=== PATIENT | female | born 1930 | race Caucasian/White ===

== ENCOUNTER → 2018-11-25 | Outpatient (CLI) | payer OTHER ==
[~2018-11-25] MED LIST: ACETAMINOPHEN325 M1; ALBUTEROL2.5 MG/3 M IH; APAP650 PO; ASPIR 8181 MG PO; ASPIRIN EC325 M1 PO; ASPIRIN EC81 M1; AZO95 MG; BLACK COHOSH40 MG PO; BREWER'S YEAST500 MG PO; CLARITIN10 M3 PO; DYAZIDE; FISH OIL 1,0001 EAC7 PO; FOLBIC RF TABL1 EACH PO; HYDROCHLOROTH12.5 M2 PO; HYDROCHLOROTHIA25 M1 PO; HYDROCHLOROTHIA25 M2 PO; IBUPROFEN 200200 M1 PO; K-DUR 20 MEQ T20 MEQ PO; KLOR-CON 1010 MEQ PO; LASIX; LASIX 20 MG TAB20 MG PO; LOPRESSOR25; LOPRESSOR25 PO; MAXZIDE-25 MG1 EACH; MOBIC7.5 M1 PO; MULTIVITAMINS PO; MYSOLINE PO; NEXIUM20 MG PO; PEPCID AC20 M1 PO; PREDNISONE 20 M20 M1 PO; PREDNISONE 5 MG5 MG; PRIMIDONE50 MG; PROTONIX40 M2; SLOW RELEASE IRON PO; TOPROL XL50 MG PO; TRAMADOL 50 MG50 MG PO; TYGACIL IV; UNICOMPLEX M TA1 TA1 PO; VITAMIN D31000 UNI2; XALATAN2.5 ML OPHTHALMIC; ZANTAC 150MG T150 MG PO; ZPAK PO; [UNRECOGNIZED DRUG - REMARK]; cranberry PO
== END ==
LOC: M.RAD 13:56
DX: M47.816 Spondylosis without myelopathy or radiculopathy, lumbar region (principal); M81.0 Age-related osteoporosis without current pathological fracture; M17.12 Unilateral primary osteoarthritis, left knee; M77.32 Calcaneal spur, left foot; M25.862 Other specified joint disorders, left knee; M76.892 Other specified enthesopathies of left lower limb, excluding foot; M43.16 Spondylolisthesis, lumbar region; M25.762 Osteophyte, left knee; G89.29 Other chronic pain

== ENCOUNTER → 2018-12-06 | Outpatient (CLI) | payer OTHER | LOC: M.ULTRA 12:30 | DX: M54.42 Lumbago with sciatica, left side (principal); G89.29 Other chronic pain; M79.605 Pain in left leg ==

== ENCOUNTER → 2019-01-03 | Outpatient (CLI) | payer OTHER ==
[~2019-01-03] MED LIST changes: +GABAPENTIN 100100 MG PO; +VOLTAREN GEL 1100 G1 TOP
--- NOTE | ~2019-01-03 | PAINCON ---
[address] [address] PAIN MANAGEMENT CONSULTATION Name: HIRA MIDDLETON Room: [facility] CardenasCarol#: [id number] Admission: 01/03/19 Attend Phys: Binh Leon MD Discharge: Date of : [birth year] Report #: [id number] THIS REPORT FOR: //name// CC: Priyank Leon DATE OF SERVICE: 01/03/2019 CHIEF COMPLAINT: Low back pain. HISTORY: The patient is an 88-year-old female who has been seen in the pain clinic in the past by Dr. Caden Stafford. This is my first visit with the patient. She has a history of a symptomatic lumbar radiculopathy. She has undergone epidural steroid injections in the past and found them beneficial. She is experiencing pain in her low back as well as in her neck and pain down in her legs. She has had flareups since 1990. Pain at this juncture is in her waist and radiates down into her ankles. She is walking with a cane. Notes that she has generalized pain "everywhere." Sometimes the pain is sharp. Frequently she is experiencing numbness and tingling, which radiates down into her ankles. She has noted some swelling in her ankles as well. She sometimes feels dizzy. Has used tramadol to help curtail the pain. Has used gabapentin. Overall with gabapentin and tramadol, the pain is about 50% better. Today, she rates her pain as an 8/10. Walking is problematic. Use of medications, heat and rest are beneficial. She describes it as a constant pain with aching and throbbing sensations. Has pain in her upper neck area with some pain that radiates down to the left side of her arm. She is not being seen by a policy loan calculator. ALLERGIES: SULFA, PENICILLIN. CURRENT MEDICATIONS: Acetaminophen 650 mg q. 8 hours p.r.n., albuterol inhalation p.r.n., aspirin 81 mg, gabapentin 100 mg at bedtime, Xalatan 0.005% ophthalmic drops one drop at bedtime, Claritin 10 mg, metoprolol 25 mg, Zantac 150 mg b.i.d., tramadol 100 mg b.i.d. PAST MEDICAL HISTORY: 1. Bradycardia. 2. Dyspnea. 3. Gastroesophageal reflux. 4. Hypertension. 5. Paroxysmal supraventricular tachycardia 01/05/2018. 6. Stroke. PAST SURGICAL HISTORY: Cardiac pacemaker placement, cholecystectomy, right total knee replacement, gallbladder replacement was 2004, pacemaker 03/2014. [place] [address] PAIN MANAGEMENT CONSULTATION Name: HIRA MIDDLETON Room: [facility]#: [id number] Admission: 01/03/19 Attend Phys: Binh Leon MD Discharge: Date of : [birth year] Report #: [id number] SOCIAL HISTORY: She is retired, has not worked since 1990. REVIEW OF SYSTEMS: Fatigue, weakness, wears glasses, blurred vision, chronic sinus rhinitis, shortness of breath, swelling of the ankles, chronic cough, constipation, abdominal pain, joint pain, joint stiffness, weakness of muscles, muscle pain and cramps, back pain, difficulty walking, lightheadedness, tremors, and nervousness. LABORATORY DATA: No new laboratory values were available at the time of our interview. MRI of the lumbar spine 03/15/2012, demineralization. Limited visibility at L3 vertebral body. L1 high-grade compression fracture with retropulsion is unchanged from 2012. The vertebral body appears to maintain normal height. Grade 1 anterolisthesis is represented at L4/L5 which is unchanged. No obvious bone destruction. The intervertebral disk spaces are preserved. Facet arthropathy is present, particularly in the lower lumbar spine. PAIN CLINIC ASSESSMENT/PQRS: 1. The patient has osteoarthritis in her knee. She has had total knee replacements on the right. The patient is not being treated for rheumatoid arthritis. 2. Height 5 feet 2 inches, weight 136 pounds, BMI was 24 and weight 136 pounds. 3. Vital Signs: Blood pressure 137/86, heart rate 67, respiratory rate 16, room air saturation 96%, temperature 97.5. 4. Pain score 8/10. The patient has not fallen in the last 3 months. 5. Blood thinner. The patient is not on a blood thinning medication. 6. Hypertension. The patient is not being treated for hypertension. She is receiving metoprolol had a history of supraventricular tachycardia. 7. Opioid greater than 6 weeks. The patient is using tramadol. 8. Risk assessment tool, low for opioid use. 9. Functional assessment tool. 10. Recreational drug use. The patient denies use of recreational drugs. 11. Tobacco: The patient is not smoking. 12. Alcohol: The patient denies use of alcoholic beverages. PHYSICAL EXAMINATION: GENERAL: The patient is a well-developed white female, appears her stated age. She is alert and oriented x 3. Her affect is appropriate. Speech is fluent. HEENT: Normocephalic, atraumatic. Extraocular eye muscles. EXTREMITIES: Upper extremity muscle strength, the patient has pain and discomfort radiating down in the lower portion of her neck and down into her left arm. The patient without significant scoliosis, kyphosis, or lordosis. Has pain and discomfort in her right knee. Soreness in her neck improves sometimes with use of a heating pad. The patient has some pain that radiates down into the lower portion of her back [place] [address] PAIN MANAGEMENT CONSULTATION Name: HIRA MIDDLETON [id number] Admission: 01/03/19 Attend Phys: Binh Leon MD Discharge: Date of : [birth year] Report #: [id number] IMPRESSION: 1. Low back pain. 2. Bradycardia. 3. Dyspnea. 4. Gastroesophageal reflux. 5. Hypertension. 6. Paroxysmal supraventricular tachycardia 01/05/2018. 7. Stroke. RECOMMENDATIONS: We interviewed the patient. We discussed the risks and benefits of an epidural steroid injection. The patient continues to have pain, which she rates as an 8/10. Notes pain with walking and activities of daily living. We will again offer her the possibility of a lumbar epidural steroid injection. She is on an antibiotic that she is taking because of a kidney infection. We explained the need to postpone an injection until the patient has had her kidney problem resolved. The use of steroid at this juncture may compromise her ability to eradicate the kidney infection. She will return to the pain clinic at which time she will then consider an epidural steroid injection. We would like to thank you for letting us participate in her care. We hope she continues to improve. By: [id number]. Jareth Leon MD /jarret
== END ==
LOC: M.PC 12:30
DX: G89.29 Other chronic pain (principal); M54.5 Low back pain; R00.1 Bradycardia, unspecified; R06.00 Dyspnea, unspecified; K21.9 Gastro-esophageal reflux disease without esophagitis; I10 Essential (primary) hypertension; Z88.2 Allergy status to sulfonamides; Z88.0 Allergy status to penicillin; Z79.82 Long term (current) use of aspirin; Z79.899 Other long term (current) drug therapy; Z86.73 Personal history of transient ischemic attack (TIA), and cerebral infarction without residual deficits; Z95.0 Presence of cardiac pacemaker; Z96.651 Presence of right artificial knee joint; Z90.49 Acquired absence of other specified parts of digestive tract; Z79.891 Long term (current) use of opiate analgesic

== ENCOUNTER 2019-06-20 11:18 | Inpatient (IN) | payer OTHER ==
[~2019-06-20] VITALS: Ht 157.5 cm; Wt 60.0 kg
[2019-06-20 11:33] VITALS: BP 167/77
[2019-06-20] MEDS ORDERED: TURMERIC500 M2 PO (11:37)
[2019-06-20] MEDS ORDERED: PROBIOTIC1 EAC1 PO (11:38)
[2019-06-20] MEDS ORDERED: SYSTANE 0.3-0.1 EACH OTIC (11:38)
[2019-06-20 12:35] LABS: URINE BILIRUBIN NEGATIVE (Negative); URINE BLOOD NEGATIVE (Negative); URINE CLARITY CLEAR; URINE COLOR YELLOW; URINE GLUCOSE-RANDOM NEGATIVE (Negative); URINE KETONES NEGATIVE (Negative); URINE LEUKOCYTES-REFLEX 1+ (Negative); URINE NITRITE-REFLEX POSITIVE (Negative); URINE PROTEIN NEGATIVE (Negative); URINE SPECIFIC GRAVITY 1.025 (1.005-1.030); URINE UROBILINOGEN 0.2 E.U./dl (0.2-1.0)
[2019-06-20 12:47] LABS: ABSOLUTE LYMPHOCYTES 0.8 thou/uL (0.8-5.3); ABSOLUTE MONOCYTES 0.3 thou/uL (0.0-1.2); ABSOLUTE NEUTROPHILS 2.1 thou/uL (1.6-8.1); BASOPHILS 0.4 %; HEMATOCRIT 36.7 % (37.0-47.0); HEMOGLOBIN 12.4 gm/dL (12.0-15.0); LYMPHOCYTES 23.7 %; MCH 30.9 pg (26.0-34.0); MCHC 33.7 g/dL (28.0-37.0); MCV 91.6 fL (80.0-100.0); MONOCYTES 10.3 %; MPV 10.7 fl. (7.2-11.1); NUCLEATED RBCS 0 /100WBC; PLATELET COUNT* 105 thou/uL (150-400); POLYS 64.6 %; RBC 4.01 mil/uL (4.20-5.00); RDW-CV 13.5 % (10.5-14.5); WBC 3.3 thou/uL (4.0-11.0)
[2019-06-20 12:54] LABS: CALCIUM 8.7 mg/dL (8.5-10.1); CREATININE 1.2 mg/dL (0.6-1.3); POTASSIUM 3.7 mmol/L (3.5-5.1)
[2019-06-20 12:59] LABS: ALBUMIN 3.2 g/dL (3.4-5.0); TOTAL BILIRUBIN 0.4 mg/dL (<0.1-1.0); TOTAL PROTEIN 6.1 g/dL (6.4-8.2)
[2019-06-20 12:59] LABS: BACTERIA-REFLEX >30 Many /HPF (None Seen); CASTS None Seen /LPF (None Seen); CRYSTALS None Seen /LPF (None Seen); MUCUS 0-3 Light strn/LPF (None Seen); SQUAMOUS 4-10 Moderate /LPF (0-3); URINE RBC 3-10 Few /HPF (0-2)
[2019-06-20 17:36] VITALS: BP 148/62
[2019-06-20 18:00] VITALS: BP 188/90
--- NOTE | 2019-06-20 19:25 | NUR ---
RECEIVED FROM ER AT 1800, AOX4, UP SBA, O2 SAT 90'S RA. TELE IN PLACED. PT COMPLAINS OF BACK PAIN. GET SITUATED TO ROOM. PT LAST BM 06/18/19, LUNG SOUND CLEAR. GOOD PO INTAKE NOTED. ADMISSION ASSESSMENT DONE, HOURLY ROUNDING, CALL LIGHT WITHIN REACH, GIVE REPORT TO NIGHT NURSE.
[2019-06-20 20:30] VITALS: BP 175/77
[2019-06-20 23:57] VITALS: BP 155/83
[2019-06-21 04:00] VITALS: BP 167/76
[2019-06-21 04:23] LABS: ABSOLUTE EOSINOPHILS 0.1 thou/uL (0.0-0.7); ABSOLUTE LYMPHOCYTES 1.1 thou/uL (0.8-5.3); ABSOLUTE MONOCYTES 0.4 thou/uL (0.0-1.2); ABSOLUTE NEUTROPHILS 1.8 thou/uL (1.6-8.1); BASOPHILS 0.4 %; EOSINOPHILS 2.5 %; HEMATOCRIT 35.7 % (37.0-47.0); HEMOGLOBIN 12.1 gm/dL (12.0-15.0); LYMPHOCYTES 33.7 %; MCH 30.9 pg (26.0-34.0); MCHC 33.8 g/dL (28.0-37.0); MCV 91.3 fL (80.0-100.0); MONOCYTES 10.6 %; MPV 10.3 fl. (7.2-11.1); NUCLEATED RBCS 0 /100WBC; PLATELET COUNT* 106 thou/uL (150-400); POLYS 52.8 %; RBC 3.91 mil/uL (4.20-5.00); RDW-CV 13.3 % (10.5-14.5); WBC 3.4 thou/uL (4.0-11.0)
[2019-06-21 04:57] LABS: ALBUMIN 2.9 g/dL (3.4-5.0); CALCIUM 8.9 mg/dL (8.5-10.1); CREATININE 0.9 mg/dL (0.6-1.3); POTASSIUM 3.8 mmol/L (3.5-5.1); TOTAL BILIRUBIN 0.4 mg/dL (<0.1-1.0); TOTAL PROTEIN 5.8 g/dL (6.4-8.2)
--- NOTE | 2019-06-21 05:49 | NUR ---
PT. PROGRESSING TOWARDS GOALS. ALERT AND ORIENTED. NO COMPLAINTS OF PAIN. HYPERTENSIVE, ROOM AIR. UP STAND BY ASSIST. HOURLY ROUNDING COMPLETED, WILL CONTINUE TO MONITOR.
[2019-06-21 08:00] VITALS: BP 156/81
[2019-06-21 11:46] VITALS: BP 124/60
--- NOTE | 2019-06-21 12:11 | NUR ---
ASSUMED PT CARE AT 0800, AOX4, UP SBA, O2 SAT 90'S RA. TRACING SR ON TELE. PT DENIES PAIN. PT ON ANTIBIOTIC, IV ACCESS INTACT. LAST BM 06/18/19. LUNG SOUND CLEAR. VSS, AM ASSESSMENT CHARTED. MEDS GIVEN PER MAR, CALL LIGHT WITHIN REACH, WILL CONTINUE TO MONITOR.
--- NOTE | 2019-06-21 15:35 | NUR ---
Pt is A&O. Resides at home with her son and DIL. Pt is independent with ADLs, son completes IADLs. Pt has a cane at home, but states that she does not currently use it. Hx of HH. Hx of SNF in [place]. [place] at [place], no needs anticipated.
[2019-06-21 15:58] VITALS: BP 132/65
[2019-06-21 20:00] VITALS: BP 150/61
[2019-06-22] VITALS: BP 152/64
[2019-06-22 04:00] VITALS: BP 178/79
--- NOTE | 2019-06-22 06:31 | NUR ---
ASSESSMENT CHARTED. VSS. PATIENT AMBULATING TO BATHROOM WITH STANDBY ASSIST. DENIES ANY PAIN OR DISCOMFORT. PATIENT IS EAGER TO GO HOME IN THE MORNING. NO SIGNIFICANT EVENTS DURING THIS SHIFT. WILL CONTINUE TO MONITOR.
[2019-06-22 08:00] VITALS: BP 189/91
[2019-06-22 11:53] VITALS: BP 137/72
--- NOTE | 2019-06-22 13:45 | NUR ---
VSS, ASSUMED CARE IN THE AM, ASSESSMENT PERFORMED AND CHARTED, FALL PRECAUTIONS IN PLACE AND CALL LIGHT IN REACH, PT IS A&O4 AND IS ON RA AND UP WITH STAND BY ASSIST, PT IS A-PACED ON THE MONITOR, PT STATES PAIN IN HER LOWER BACK, RATES IT 5 OUT OF 10, PT GOAL IS TO SIT UP IN CHAIR AND WORK WITH PT/OT, WILL FOLLOW WITH PLAN OF CARE.
--- NOTE | 2019-06-22 14:15 | NUR ---
Following for d/c planning needs. Reviewed chart and spoke with physician. Pt is not medically ready for d/c today. Will remain available to assist as needed.
[2019-06-22 18:55] VITALS: BP 150/69
[2019-06-22 19:50] VITALS: BP 169/78
[2019-06-23] VITALS: BP 168/71
[2019-06-23 04:29] VITALS: BP 155/81
[2019-06-23 04:30] LABS: HEMATOCRIT 35.9 % (37.0-47.0); HEMOGLOBIN 12.1 gm/dL (12.0-15.0); MCH 30.9 pg (26.0-34.0); MCHC 33.6 g/dL (28.0-37.0); MPV 10.3 fl. (7.2-11.1); RBC 3.9 mil/uL (4.20-5.00); RDW-CV 13.3 % (10.5-14.5); WBC 4.1 thou/uL (4.0-11.0)
[2019-06-23 04:45] LABS: CALCIUM 9.2 mg/dL (8.5-10.1); CREATININE 0.9 mg/dL (0.6-1.3); MAGNESIUM 1.7 mg/dL (1.8-2.4); POTASSIUM 4.1 mmol/L (3.5-5.1)
--- NOTE | 2019-06-23 06:26 | NUR ---
PT CARE ASSUMED AT 1930. SAT MAINTAINED IN RA. ALERT AND ORIENTED X4. CALL LIGHT WITHIN REACH AND BED IN LOW POSITION. DENIES PAIN AND SOB. HOURLY ROUNDING DONE FOR PT SAFETY.
[2019-06-23 08:00] VITALS: BP 166/79
[2019-06-23 12:00] VITALS: BP 142/80
--- NOTE | 2019-06-23 14:30 | NUR ---
Plan continues to be for Pt to dc to home with family, Pt is refusing HH at this time. Following.
[2019-06-23 16:14] VITALS: BP 152/62
--- NOTE | 2019-06-23 18:38 | NUR ---
ASSUMED CARE OF PT, PT VVS, NSR AND APACED ON TELE, PT REPORTS SOME PAIN ON MOVEMENT BUT DESIRED NOTHING MORE THAN LIDOCAINE PATCH. HIGH FALL RISK, POSSESSIONS AND CALL LIGHT WITHIN REACH. HOURLY ROUNDING PERFORMED, PT SPOKE WITH GI AND DESIRES NO FURTHER TESTING OR INTERVENTION. PT RESTING COMFORTABLY IN ROOM.
--- NOTE | 2019-06-23 19:04 | NUR ---
THIS RN HAS REVIEWED AND AGREES WITH ASSESSMENT AND CHARTING OF PERLA RN.
[2019-06-23 19:50] VITALS: BP 154/62
[2019-06-24] VITALS: BP 171/65
[2019-06-24 04:00] VITALS: BP 161/65
--- NOTE | 2019-06-24 07:32 | NUR ---
PT CARE ASSUMED AT 1930. SAT MAINTAINED IN RA. ALERT AND ORIENTED X4. CALL LIGHT WITHIN REACH AND BED IN LOW POSITION. DENIES PAIN AND SOB. NO NAUSEA OVERNIGHT. HOURLY ROUNDING DONE FOR PT SAFETY.
[2019-06-24 08:00] VITALS: BP 153/70
[2019-06-24 11:45] VITALS: BP 119/49
--- NOTE | 2019-06-24 13:25 | NUR ---
ASSUMED PT CARE AT 0730, FULL ASSESMENT DONE CHARTED. PT A/O X4, C/O SOME BACK PAIN, DENIES NEED FOR PRN MEDS BUT DOES USE THE HEATING PAD. PT UP WITH ASSIST, USES CALL LIGHT APPROPRIATLY. VSS, APACED ON THE MONITOR. MADE M/S STATUS THIS AM. PT HAS NOT HAD BM SINCE WEDNESDAY, MOM GIVEN. PT TRANSFERED TO ROOM 313 AT APPROX 1325, REPORT GIVEN TO ANISA MARS
[2019-06-24 13:27] VITALS: BP 147/71
--- NOTE | 2019-06-24 14:14 | NUR ---
PATIENT TRANSFERRD FROM [facility] THIS AFTERNOON. REPORT RECEIVED FROM JERAD ANDERSON. AGREE WITH AM ASSESSMENT. IV SL. NO COMPLAINTS AT THIS TIME. INSTRUCTED TO CALL FOR ASSISTANCE WHEN GETTING OUT OF BED. WILL CONTINUE TO MONITOR.
--- NOTE | 2019-06-24 17:25 | NUR ---
PATIENT AMUBLATED WITH NURSING STAFF TO BATHROOM THIS EVENING. PATIENT STATED SHE DID HAVE A BM AT THIS TIME, MOM WAS GIVEN THIS AFTERNOON PRIOR TO TRANSFER. TOLERATING DINNER. NO COMPLAINTS THIS SHIFT.
[2019-06-24 20:00] VITALS: BP 133/64
--- NOTE | 2019-06-25 06:02 | NUR ---
PT ALERT AND ORIENTED. VSS ON RA. ASSESSMENT DOCUMENTED. PT AMBULATES STANDBY WITH WALKER. PAIN MED GIVEN X1 THIS SHIFT. PT SLEPT MOST OF SHIFT. DENIES N/V. FALL PRECAUTION IN PLACE. CALL LIGHT WITHIN REACH. HOURLY ROUNDINGS MADE. WILL CONTINUE TO MONITOR.
[2019-06-25 08:00] VITALS: BP 121/54
[2019-06-25] MEDS ORDERED: LIDOPATCH1 EACH TOP (09:20)
[2019-06-25] MEDS ORDERED: CIPRO500 MG PO (09:20)
[2019-06-25] MEDS ORDERED: SENNA8.6 MG PO (09:21)
[2019-06-25] MEDS ORDERED: COLACE 100 MG100 MG PO (09:21)
[2019-06-25 12:02] VITALS: BP 121/54
--- NOTE | 2019-06-25 13:07 | NUR ---
ASSUMED PT CARE AT 0730. ASSESSMENT COMPLETED CHART. ABLE TO MAKE NEEDS KNOWN. NO C/O PAIN OR DISCOMFORT. DISCHARGE APPROVED AND GAVE DISCHARGE PAPERWORK, SCRIPTS, AND MEDICATION INFO TO PT. TOOK OUT IV AND PT LEFT AROUND 1245 IN WHEELCHAIR WITH FAMILY IN TOW. PT TOOK ALL BELONGINGS WITH HER INCLUDING HER CANE. NO COMMENTS, QUESTIONS, OR CONCERNS NOTED.
--- NOTE | 2019-06-26 09:44 | NUR ---
ORDERS NOTED FOR HH AT [place], WAS NOT ARRANGED PER NOTES. CALLED PT, SHE IS AGREEEABLE, DISCUSSED OPTIONS AND SET UP [facility]. CALLED AND FAXED ORDERS TO [facility]. PT INSTRUCTED THAT HH WILL CALL TO SET UP VISIT
== END 2019-06-25 12:45 | disposition home health service (06) | DRG 871 ==
LOC: M.ERS 11:18 → M.2W 13:57 → M.TBA-ER 13:57 → M.2W 17:40 → M.3W 06-24 13:26 → M.ORTHSURG 06-24 16:27
PROVIDERS: Internal Medicine; Personal Emergency Response Attendant; ADMIT Internal Medicine
DX: A41.9 Sepsis, unspecified organism (principal); G92 Toxic encephalopathy; N39.0 Urinary tract infection, site not specified; E44.1 Mild protein-calorie malnutrition; I10 Essential (primary) hypertension; K21.9 Gastro-esophageal reflux disease without esophagitis; Z90.49 Acquired absence of other specified parts of digestive tract; R31.9 Hematuria, unspecified; M79.18 Myalgia, other site; R10.13 Epigastric pain; K59.00 Constipation, unspecified; G89.29 Other chronic pain; M54.9 Dorsalgia, unspecified; Z79.899 Other long term (current) drug therapy; Z88.0 Allergy status to penicillin; Z88.2 Allergy status to sulfonamides; Z86.73 Personal history of transient ischemic attack (TIA), and cerebral infarction without residual deficits; Z95.0 Presence of cardiac pacemaker; Z80.8 Family history of malignant neoplasm of other organs or systems; Z81.8 Family history of other mental and behavioral disorders; Z83.6 Family history of other diseases of the respiratory system; Z68.24 Body mass index [BMI] 24.0-24.9, adult